=== PATIENT | female | born 2000 | race Caucasian/White ===

== ENCOUNTER 2022-03-12 00:30 | Emergency (ER) | payer OTHER ==
--- NOTE | 2022-03-12 00:51 | ERPHSYRPT ---
- History of Present Illness Source: patient Exam Limitations: no limitations Patient Subjective Stated Complaint: pt states "I was loading a carseat when I fell down the stairs. 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 Pt states that her pain is an 8 and worse w weight bearing. She has a h/o a previous R ankle fx. Pt denies other injuries at this time. Method of Injury: fell Occurred: other (18:00) Quality: constant Severity of Pain-Max: severe Severity of Pain-Current: severe Lower Extremities Pain: ankle: right Modifying Factors: Improves With: movement Associated Symptoms: snapping sensation Allergies/Adverse Reactions: latex Allergy (Verified 03/12/22 00:37) Hives Home Medications: No Reportable Medications [No Reported Medications] 03/12/22 [History] Hx Tetanus, Diphtheria Vaccination/Date Given: Yes Hx Influenza Vaccination/Date Given: No Hx Pneumococcal Vaccination/Date Given: No Immunizations Up to Date: Yes Travel Risk - International Travel Have you traveled outside of the country in past 3 weeks: No - Coronavirus Screening Are you exhibiting any of the following symptoms?: No Close contact with a COVID-19 positive Pt in past 14-21 Days: No - Vaccine Status Have you recieved a Covid-19 vaccination: No - Review of Systems Constitutional: No Symptoms Eyes: No Symptoms Ears, Nose, & Throat: No Symptoms Respiratory: No Symptoms Cardiac: No Symptoms Abdominal/Gastrointestinal: No Symptoms Genitourinary Symptoms: No Symptoms Skin: No Symptoms Neurological: No Symptoms Psychological: No Symptoms Endocrine: No Symptoms Hematologic/Lymphatic: No Symptoms Immunological/Allergic: No Symptoms - Past Medical History Pertinent Past Medical History: No Neurological History: Migraines ENT History: No Pertinent History Cardiac History: No Pertinent History Respiratory History: No Pertinent History Endocrine Medical History: No Pertinent History Musculoskeletal History: No Pertinent History GI Medical History: No Pertinent History History: No Pertinent History Psycho-Social History: No Pertinent History Female Reproductive Disorders: No Pertinent History - Past Surgical History Past Surgical History: Yes Other Surgical History: tubes in ears - Social History Smoking Status: Never smoker Exposure to second hand smoke: No Drug Use: none Patient Lives Alone: No - Female History Hx Now: No - Nursing Vital Signs Nursing Vital Signs: Initial Vital Signs Temperature 98.1 F 03/12/22 00:37 Pulse Rate 82 03/12/22 00:37 Respiratory Rate 14 03/12/22 00:37 Blood Pressure 139/95 03/12/22 00:37 O2 Sat by Pulse Oximetry 97 03/12/22 00:37 Pain Scale Pain Intensity 6 Hypertensive - Physical Exam General Appearance: no apparent distress Eyes, Ears, Nose, Throat Exam: normal ENT inspection, TMs normal, pharynx normal, moist mucous membranes Neck Exam: normal inspection, non-tender, supple, full range of motion, No Brudzinski, No Kernig's, No meningismus Cardiovascular/Respiratory Exam: normal breath sounds, regular rate/rhythm, heart sounds normal Gastrointestinal/Abdominal Exam: non-tender, soft Back Exam: normal inspection, normal range of motion, No CVA tenderness, No vertebral tenderness Hips Exam: bilateral: non-tender, normal inspection, normal range of motion, no evidence of injury Legs Exam: bilateral leg: non-tender, normal inspection, normal range of motion, no evidence of injury Knees Exam: bilateral knee: non-tender, normal inspection, normal range of motion, no evidence of injury Ankle Exam: right ankle: other (R ankle TTP laterally/No edema/No deformity/Pain w inversion/Good pedal pulse, distal sensation, and capillary return) Foot Exam: bilateral foot: non-tender, normal inspection, normal range of motion, no evidence of injury Neuro/Tendon Exam: normal sensation, normal motor functions, normal tendon functions, responds to pain, no evidence tendon injury, No motor deficit, No s ensory deficit Mental Status Exam: alert, oriented x 3, cooperative Skin Exam: normal color, warm, dry SpO2 Interpretation: normal SpO2: 97 O2 Delivery: Room Air - Course Nursing assessment & vital signs reviewed: Yes - Radiology Exams Ankle X-ray Interpretation: Interpreted by me (R ankle neg per ER read) Ordered Tests: Active Orders 24 hr Category Date Time Status Gianni Bandage Application -[facility] STAT Care 03/12/22 00:56 Completed ANKLE (3 VIEWS) Stat Exams 03/12/22 01:24 Taken - Progress Progress Note: 03/12/22 00:58 Gianni wrap R ankle per nursing/NVI Pt refuses all pain meds Counseled pt/family regarding: diagnosis, need for follow-up, rad results - Departure Departure Disposition: Home Clinical Impression: Right ankle injury Condition: Stable Critical Care Time: No Referrals: DOCTOR,NO FAMILY [Primary Care Provider] - Follow up/PCP as directed Instructions: Ankle Sprain (DC) Additional Instructions: Gianni wrap for 2-3 days Ice for 12-24 hours Motrin/Tylenol for pain Weight bearing as tolerated
[2022-03-12 01:04] VITALS: BP 129/74; PULSE 80
[2022-03-12 01:41] VITALS: O2SAT 97
--- NOTE | 2022-03-12 08:01 | XRAY ---
Indication: Pain following fall. Comparison: None 3 view right ankle demonstrates normal bones, articulation, and soft tissues.
== END 2022-03-12 01:08 | disposition home or self-care (01) ==
LOC: ED 00:30
DX: S99.911A Unspecified injury of right ankle, initial encounter (principal); W10.9XXA Fall (on) (from) unspecified stairs and steps, initial encounter; Y99.0 Civilian activity done for income or pay; M25.571 Pain in right ankle and joints of right foot; Z28.310 Unvaccinated for COVID-19
CPT/HCPCS: 73610; 99283